=== PATIENT | male | born 1965 | race Caucasian/White ===

== ENCOUNTER 2017-11-18 15:05 | Emergency (ER) | payer MEDICARE ==
[2017-11-18] MEDS ORDERED: Lidocaine 1% w/Epinephrine 1:100K 30 ML VIAL ONE (15:19)
[2017-11-18] MEDS ORDERED: Cephalexin 500 MG CAP ONE (15:45)
[2017-11-18] MEDS ORDERED: Triple Antibiotic Oint 1 GM Packet ONE (15:46)
== END 2017-11-18 15:53 | disposition home or self-care (01) ==
LOC: MADERS 15:05
DX: S61.412A Laceration without foreign body of left hand, initial encounter (principal); W27.0XXA Contact with workbench tool, initial encounter
CPT/HCPCS: 12002; J2001